=== PATIENT | female | born 1995 | race Caucasian/White ===

== ENCOUNTER 2023-11-20 19:00 | Emergency (ER) | payer OTHER ==
[~2023-11-20] VITALS: Ht 160 cm; Wt 96.4 kg
[2023-11-20 19:19] VITALS: TEMP 98.5
[2023-11-20 20:23] VITALS: BP 136/100
[2023-11-20] MEDS ORDERED: LR 1,000 ML IV ONE (20:30)
[2023-11-20 21:35] LABS: BASO % 0.2 % (0.0-2.0); EOS # 0.1 K/mm3 (0.0-0.7); EOS % 1.3 % (0.0-4.0); GRAN # 6.5 K/mm3 (1.4-6.5); GRAN % 61.9 % (42.2-75.2); HEMATOCRIT 39.6 % (37.0-47.0); LYMPH # 3.2 K/mm3 (1.2-3.4); MEAN CELL VOLUME 85 fl (80.0-100.0); MEAN CORPUSCULAR HEMOGLOBIN 28 pg (27-31); MEAN CORPUSCULAR HGB CONC 33 g/dl (33.0-37.0); MEAN PLATELET VOLUME 10.6 fl (7.4-10.4); MONO # 0.7 K/mm3 (0.1-0.6); MONO % 6.2 % (1.7-9.3); PLATELET COUNT 338 K/mm3 (130-400); RED BLOOD COUNT 4.66 M/mm3 (4.10-5.30); REDCELL DISTRIBUTION WIDTH-CV 15.6 % (11.5-14.5)
[2023-11-20 21:39] LABS: URINE APPEARANCE CLEAR (CLEAR/HAZY); URINE BLOOD 2+ (NEGATIVE); URINE COLOR YELLOW (YELLOW); URINE GLUCOSE NEGATIVE (NEGATIVE); URINE KETONE NEGATIVE (NEGATIVE); URINE NITRATE NEGATIVE (NEGATIVE); URINE PROTEIN(semi-quant) NEGATIVE (NEGATIVE); URINE UROBILINOGEN 0.2 E.U/dL (0.2-1.0)
[2023-11-20 21:47] LABS: ALBUMIN 4.1 g/dL (3.5-5.0); BILIRUBIN,TOTAL 0.3 mg/dL (0.2-1.2); CALCIUM 9.4 mg/dL (8.4-10.2); CREATININE, serum 0.83 mg/dL (0.57-1.11); POTASSIUM 3.8 mEq/L (3.5-4.5); TOTAL PROTEIN 7.8 g/dl (6.2-8.1)
[2023-11-20 22:30] VITALS: PULSE 64
[2023-11-20 22:40] LABS: COLLECTION METHOD CLEAN CATCH
== END 2023-11-20 22:31 | disposition home or self-care (01) ==
LOC: COL.ER 19:00
PROVIDERS: Family Medicine
DX: O72.2 Delayed and secondary postpartum hemorrhage (principal); Z91.040 Latex allergy status
CPT/HCPCS: J7120